=== PATIENT | female | born 1980 | race Caucasian/White ===

== ENCOUNTER 2016-11-17 21:49 | Emergency (ER) | payer SELFPAY ==
[~2016-11-17] VITALS: Ht 172.7 cm; Wt 65.3 kg
[2016-11-17] MEDS ORDERED: ETHI1TAB4 PO (22:16)
[2016-11-17] MEDS ORDERED: SPIR50TA3 PO (22:18)
[2016-11-17 22:56] LABS: *BILIRUBIN,URIN NEGATIVE (NEGATIVE); *BLOOD, URINE 1+ (NEGATIVE); *CLARITY,URINE CLEAR (CLEAR); *COLOR,URINE YELLOW (YELLOW); *KETONES,URINE TRACE (NEGATIVE); *UROBILINOGEN,URINE 0.2 E.U./dl (NORMAL); LEUKOCYTE ESTERASE ,URINE NEGATIVE (NEGATIVE); NITRITE, URINE NEGATIVE (NEGATIVE); PH,URINE 5.5 (5.0-8.0)
[2016-11-17 23:13] LABS: *PROTEIN,URINE 3+ (NEGATIVE); UGLUCOSE 2+ (NEGATIVE)
[2016-11-17 23:18] LABS: BACTERIA,URINE MODERATE /HPF (NONE SEEN); RBC,URINE 0-3 /HPF (0-3); SQUAMOUS EPITHELIAL CELL,UR MANY /HPF (NONE SEEN); YEAST,URINE MODERATE /HPF (NONE SEEN)
[2016-11-17 23:19] LABS: *URINE HCG, QUAL NEGATIVE (NEGATIVE)
[2016-11-17] MEDS: KETOROLAC TROMETHAMINE 15 MG INJ IV ONE (23:19)
[2016-11-17] MEDS: IV NORMAL SALINE 1000 ML BAG IV ONE (23:19)
--- NOTE | 2016-11-17 23:19 | NUR ---
blood sugar 77mg/dl, notified.
[2016-11-17] MEDS ORDERED: KETOROLAC TROMETHAMINE 30 MG INJ ONE (23:22)
[2016-11-17 23:41] LABS: BILIRUBIN,DIRECT 0.1 mg/dL (0.0-0.2); BILIRUBIN,TOTAL 0.2 mg/dL (0.2-1.0); CREATININE 0.7 mg/dL (0.6-1.3); POTASSIUM 3.7 mmol/L (3.5-5.1); TOTAL PROTEIN, SERUM 8.1 g/dL (6.4-8.2)
[2016-11-17 23:47] LABS: BASOPHILS # (AUTO) 0.1 K/uL (0.0-8.0); BASOPHILS % (AUTO) 0.5 % (0.0-2.0); EOSINOPHILS # (AUTO) 0.1 K/uL (0.0-0.7); EOSINOPHILS % (AUTO) 0.7 % (0.0-7.0); HEMATOCRIT 38.9 % (37-47); HEMOGLOBIN 12.9 G/DL (12.0-16.0); LYMPHOCYTES # (AUTO) 2.7 K/UL (0.8-4.8); LYMPHOCYTES % (AUTO) 26.6 % (20.5-51.5); MEAN CORPUSCULAR HEMOGLOBIN 29.1 UUG (27.0-31.0); MEAN CORPUSCULAR HGB CONC 33 g/dL (32.0-37.0); MEAN CORPUSCULAR VOLUME 87.5 FL (81.0-99.0); MONOCYTES # (AUTO) 0.5 K/UL (0.1-1.30); NEUTROPHILS # (AUTO) 6.7 K/UL (1.8-8.9); NEUTROPHILS % (AUTO) 67.2 % (38.5-71.5); PLATELET COUNT (AUTO) 320 K/UL (150-450); RED BLOOD CELL COUNT(AUTO) 4.45 MIL/UL (4.2-5.4); WHITE BLOOD COUNT (AUTO) 10.1 K/UL (4.0-11.2)
[2016-11-17] MEDS: MORPHINE SULFATE 4 MG/1 ML DISP.SYRIN IV ONE (23:50)
[2016-11-17] MEDS: ONDANSETRON 4 MG/2 ML VIAL IV ONE (23:56)
[2016-11-17] MEDS ORDERED: MORPHINE SULFATE 4 MG/1 ML DISP.SYRIN ONE (23:59)
[2016-11-17] MEDS ORDERED: ONDANSETRON 4 MG/2 ML VIAL ONE (23:59)
[2016-11-18] MEDS ORDERED: HYDROMORPHONE 1 MG/1 ML DISP.SYRIN ONE (00:10)
[2016-11-18] MEDS: HYDROMORPHONE 1 MG/1 ML DISP.SYRIN IV ONE (00:18)
[2016-11-18 01:55] LABS: *BILIRUBIN,URIN NEGATIVE (NEGATIVE); *BLOOD, URINE Trace-lysed (NEGATIVE); *CLARITY,URINE CLEAR (CLEAR); *COLOR,URINE YELLOW (YELLOW); *KETONES,URINE 1+ (NEGATIVE); *PROTEIN,URINE NEGATIVE (NEGATIVE); *UROBILINOGEN,URINE 0.2 E.U./dl (NORMAL); LEUKOCYTE ESTERASE ,URINE 1+ (NEGATIVE); NITRITE, URINE NEGATIVE (NEGATIVE); UGLUCOSE NEGATIVE (NEGATIVE)
[2016-11-18 02:03] LABS: BACTERIA,URINE FEW /HPF (NONE SEEN); RBC,URINE 0-3 /HPF (0-3); SQUAMOUS EPITHELIAL CELL,UR MODERATE /HPF (NONE SEEN); WBC,URINE 0-3 /HPF (0-3)
[2016-11-18 02:26] LABS: *URINE HCG, QUAL NEGATIVE (NEGATIVE)
[2016-11-18] MEDS: ONDANSETRON 4 MG/2 ML VIAL IV ONE (02:40)
[2016-11-18] MEDS ORDERED: ONDANSETRON 4 MG/2 ML VIAL ONE (02:49)
--- NOTE | 2016-11-18 03:19 | NUR ---
Patient discharged to home in stable conditon. Written and verbal after care instructions given. Patient verbalizes understanding of instructions. Ambulated from ER with stable gait. All belongings with patient. Peripheral IV removed. Patient will be driven home by in private vehicle.
[2016-11-18 03:21] VITALS: BP 121/74
== END 2016-11-18 03:22 | disposition home or self-care (01) ==
LOC: ER 21:55
DX: R10.9 Unspecified abdominal pain (principal)
CPT/HCPCS: 36415; 76770; 84703; 85025; A4663; J1170; J1885; J2270; J2405; J7030

== ENCOUNTER 2020-07-22 16:46 | Emergency (ER) | payer MEDICAID ==
[~2020-07-22] VITALS: Ht 172.7 cm; Wt 63.5 kg
[~2020-07-22 16:46] MED LIST: ETHI1TAB4 PO; SPIR50TA5 PO
[2020-07-22] MEDS ORDERED: HYDROMORPHONE 1 MG/1 ML DISP.SYRIN ONE (17:10)
[2020-07-22] MEDS ORDERED: ONDANSETRON 4 MG/2 ML VIAL ONE ×2 (17:10→18:28)
[2020-07-22] MEDS: IV NORMAL SALINE 1000 ML BAG IV ONE (17:11)
[2020-07-22] MEDS: ONDANSETRON 4 MG/2 ML VIAL IV ONE ×2 (17:12→18:25)
[2020-07-22] MEDS: HYDROMORPHONE 1 MG/1 ML DISP.SYRIN IV ONE (17:12)
[2020-07-22 17:22] LABS: BASOPHILS # (AUTO) 0.1 K/uL (0.0-8.0); BASOPHILS % (AUTO) 0.6 % (0.0-2.0); EOSINOPHILS % (AUTO) 0.2 % (0.0-7.0); HEMATOCRIT 40.3 % (31.2-41.9); HEMOGLOBIN 12.9 g/dL (10.9-14.3); MEAN CORPUSCULAR HEMOGLOBIN 27.6 uug (24.7-32.8); MEAN CORPUSCULAR HGB CONC 32 g/dL (32.3-35.6); MEAN CORPUSCULAR VOLUME 85.8 fL (75.5-95.3); MONOCYTES # (AUTO) 0.2 K/uL (2.0-10.0); MONOCYTES % (AUTO) 1.4 % (0.0-11.0); NEUTROPHILS # (AUTO) 10.3 K/uL (1.8-8.9); NEUTROPHILS % (AUTO) 88.8 % (38.5-71.5); PLATELET COUNT (AUTO) 383 K/uL (179-408); RED BLOOD CELL COUNT(AUTO) 4.69 MIL/uL (3.63-4.92); WHITE BLOOD COUNT (AUTO) 11.5 K/uL (3.8-11.8)
[2020-07-22 17:31] LABS: CARBON DIOXIDE 25 mmol/L (21-32); CHLORIDE 102 mmol/L (98-107); CREATININE 0.5 mg/dL (0.6-1.3); GLUCOSE 111 mg/dL (74-106); POTASSIUM 3.9 mmol/L (3.5-5.1); UREA NITROGEN, BLOOD 10 mg/dL (7-18)
[2020-07-22 17:37] LABS: ALANINE AMINOTRANSFERASE 26 U/L (14-59); ALKALINE PHOSPHATASE 60 U/L (50-136); ASPARTATE AMINOTRANSFERASE 17 U/L (15-37); BILIRUBIN,DIRECT 0.1 mg/dL (0.0-0.2); BILIRUBIN,TOTAL 0.4 mg/dL (0.2-1.0); LIPASE 84 U/L (73-393); TOTAL PROTEIN, SERUM 7.7 g/dL (6.4-8.2)
[2020-07-22 17:39] LABS: *BILIRUBIN,URIN NEGATIVE (NEGATIVE); *BLOOD, URINE TRACE INTACT (NEGATIVE); *CLARITY,URINE SLIGHTLY CLOUDY (CLEAR); *COLOR,URINE YELLOW (YELLOW); *KETONES,URINE TRACE (NEGATIVE); *UROBILINOGEN,URINE 0.2 E.U./dl (NORMAL); LEUKOCYTE ESTERASE ,URINE 2+ (NEGATIVE); NITRITE, URINE NEGATIVE (NEGATIVE); UGLUCOSE NEGATIVE (NEGATIVE)
[2020-07-22 17:40] LABS: *URINE HCG, QUAL NEGATIVE (NEGATIVE)
[2020-07-22] MEDS ORDERED: HYDR-3980 PO (18:09)
[2020-07-22] MEDS ORDERED: CEPH500T PO (18:09)
[2020-07-22] MEDS ORDERED: CEFTRIAXONE /D5W 50ML IVPB **ER PYXIS IV ONE (18:17)
[2020-07-22] MEDS: CEFTRIAXONE 1 G in IV DEXTROSE 5% 50 ML IV ONE (18:20)
[2020-07-22] MEDS: KETOROLAC TROMETHAMINE 30 MG INJ IVP ONE (18:41)
[2020-07-22] MEDS ORDERED: KETOROLAC TROMETHAMINE 30 MG INJ ONE (18:44)
[2020-07-22 19:09] VITALS: BP 117/81
--- NOTE | 2020-07-22 19:09 | NUR ---
Patient discharged to home in stable condition. Written and verbal after care instructions given. Patient verbalizes understanding of instructions. Stressed follow up or return to ER for worsening s/s. pt walks in steady gait. pt has aride to go home.
== END 2020-07-22 19:12 | disposition home or self-care (01) ==
LOC: ER 16:46
DX: N12 Tubulo-interstitial nephritis, not specified as acute or chronic (principal)
CPT/HCPCS: 36415; 74176; 80048; 80076; 81001; 83690; 84702; 84703; 85025; 87086; 96361; 96365; 96375; 96376; 99284; J0696; J1170; J1885; J2405 ×2; A4663; J7030

== ENCOUNTER 2022-07-13 13:36 | Emergency (ER) | payer MEDICAID, OTHER ==
[~2022-07-13] VITALS: Ht 172.7 cm; Wt 63.5 kg
[~2022-07-13 13:36] MED LIST changes: +CEPH500T PO; +HYDR-3980 PO
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
[2022-07-13] MEDS ORDERED: HYDROCODONE/APAP 5-325MG TABLET PO ONE (15:00)
[2022-07-13] MEDS ORDERED: ACETAMINOPHEN 325 MG TABLET PO ONE (15:00)
--- NOTE | 2022-07-13 15:01 | NUR ---
X-rays completed - awaiting results
[2022-07-13] MEDS ORDERED: HYDROCODONE/APAP 5-325MG TABLET ONE (15:04)
[2022-07-13] MEDS ORDERED: ACETAMINOPHEN 325 MG TABLET ONE (15:05)
[2022-07-13 15:08] LABS: HEMATOCRIT 37.6 % (31.2-41.9); MEAN CORPUSCULAR HEMOGLOBIN 28.2 uug (24.7-32.8); MEAN CORPUSCULAR VOLUME 87.7 fL (75.5-95.3); PLATELET COUNT (AUTO) 299 K/uL (179-408)
--- NOTE | 2022-07-13 15:15 | NUR ---
1) Reviewed by MD. 2) Tylenol and Apollo administered as prescribed and awaiting effect. 3) Rails raised - because of drowsy effect of Apollo.
--- NOTE | 2022-07-13 16:58 | NUR ---
1) Discharge paperwork completed -signed and copies provided. 2) Wanted to see long term care social worker again for report number. 3) Left several messages for long term care social worker Li [phone]/office number [phone]- left another voice mail
--- NOTE | 2022-07-13 17:06 | NUR ---
Patient wants group social worker to call her re: case reference number. Patient happy and left ER clinically stable
[2022-07-13 17:09] VITALS: BP 128/65
--- NOTE | 2022-07-14 08:28 | NUR ---
SW attempted to contact the patient and left her a voicemail with call back information.
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
== END 2022-07-13 17:18 | disposition home or self-care (01) ==
LOC: ER 13:36
DX: S20.222A Contusion of left back wall of thorax, initial encounter (principal); S60.212A Contusion of left wrist, initial encounter; S80.01XA Contusion of right knee, initial encounter; Y04.0XXA Assault by unarmed brawl or fight, initial encounter; Y92.89 Other specified places as the place of occurrence of the external cause; M25.461 Effusion, right knee
CPT/HCPCS: 36415; 71045; 72170; 73110; 85025; A4663

== ENCOUNTER 2022-07-15 15:29 | Emergency (ER) | payer OTHER ==
[~2022-07-15] VITALS: Ht 172.7 cm; Wt 63.5 kg
[2022-07-15] MEDS ORDERED: IV NORMAL SALINE 1000 ML BAG IV ONE (15:45)
[2022-07-15] MEDS ORDERED: DIAZEPAM 10 MG/2 ML DISP.SYRIN IV ONE (15:45)
[2022-07-15] MEDS ORDERED: ACETAMINOPHEN 325 MG TABLET PO ONE (15:45)
[2022-07-15] MEDS ORDERED: ACETAMINOPHEN 325 MG TABLET ONE (15:53)
[2022-07-15] MEDS ORDERED: DIAZEPAM 10 MG/2 ML DISP.SYRIN ONE (15:54)
[2022-07-15] MEDS ORDERED: CYCL5TAB PO (16:15)
[2022-07-15] MEDS ORDERED: IBUP-1955 PO (16:15)
--- NOTE | 2022-07-15 16:21 | NUR ---
Back from CT, NAD noted.
[2022-07-15] MEDS ORDERED: KETOROLAC TROMETHAMINE 15 MG INJ IVP ONE (17:00)
[2022-07-15] MEDS ORDERED: KETOROLAC TROMETHAMINE 15 MG INJ ONE (17:06)
--- NOTE | 2022-07-15 17:20 | NUR ---
Patient discharged to home in stable condition. Written and verbal after care instructions given. Patient verbalizes understanding of instructions. Stressed follow up or return to ER for worsening s/s.
--- NOTE | 2022-07-15 17:20 | NUR ---
IV removed. Catheter intact and site benign. Pressure and 4x4 gauze applied to site. No bleeding noted.
== END 2022-07-15 17:35 | disposition home or self-care (01) ==
LOC: ER 15:29
DX: S06.0XAA Concussion with loss of consciousness status unknown, initial encounter (principal); S83.91XA Sprain of unspecified site of right knee, initial encounter; S16.1XXA Strain of muscle, fascia and tendon at neck level, initial encounter; Y04.0XXA Assault by unarmed brawl or fight, initial encounter; Y92.89 Other specified places as the place of occurrence of the external cause
CPT/HCPCS: 99285; 70450; 96374; 96361; 96375; 72125; J3360; J1885; J7040; A4663

== ENCOUNTER 2022-07-23 14:31 | Emergency (ER) | payer OTHER ==
[~2022-07-23] VITALS: Ht 170.2 cm; Wt 61.2 kg
[~2022-07-23 14:31] MED LIST changes: +CYCL5TAB PO; +IBUP-1955 PO
--- NOTE | 2022-07-23 15:17 | NUR ---
MD at bedside for evaluation
[2022-07-23] MEDS ORDERED: NAPR-1009 PO (15:28)
[2022-07-23 15:34] VITALS: BP 118/80
== END 2022-07-23 15:36 | disposition home or self-care (01) ==
LOC: ER 14:31
DX: M25.561 Pain in right knee (principal); Z79.1 Long term (current) use of non-steroidal anti-inflammatories (NSAID); Z79.899 Other long term (current) drug therapy
CPT/HCPCS: A4663

== ENCOUNTER 2022-11-08 11:08 | Emergency (ER) | payer OTHER ==
[~2022-11-08] VITALS: Ht 170.2 cm; Wt 61.2 kg
[~2022-11-08 11:08] MED LIST changes: +NAPR-1009 PO
[2022-11-08] MEDS ORDERED: MECLIZINE HCL 25 MG TABLET PO ONE (11:30)
[2022-11-08] MEDS ORDERED: IV NORMAL SALINE 1000 ML BAG IV ONE (11:30)
[2022-11-08] MEDS ORDERED: ONDANSETRON 4 MG/2 ML VIAL IV ONE (11:30)
[2022-11-08 11:57] LABS: BASOPHILS # (AUTO) 0.1 K/UL (0.0-0.2); BASOPHILS % (AUTO) 1.1 % (0.0-2.0); EOSINOPHILS # (AUTO) 0.2 K/uL (0.0-0.7); EOSINOPHILS % (AUTO) 3.3 % (0.0-7.0); HEMATOCRIT 37.6 % (31.2-41.9); HEMOGLOBIN 12.3 g/dL (10.9-14.3); LYMPHOCYTES # (AUTO) 1.8 K/uL (0.8-4.8); LYMPHOCYTES % (AUTO) 36.5 % (20.5-51.5); MEAN CORPUSCULAR HEMOGLOBIN 28.4 uug (24.7-32.8); MEAN CORPUSCULAR HGB CONC 33 g/dL (32.3-35.6); MEAN CORPUSCULAR VOLUME 86.7 fL (75.5-95.3); MONOCYTES # (AUTO) 0.3 K/uL (0.1-1.30); MONOCYTES % (AUTO) 5.8 % (0.0-11.0); NEUTROPHILS # (AUTO) 2.6 K/uL (1.8-8.9); NEUTROPHILS % (AUTO) 53.3 % (38.5-71.5); PLATELET COUNT (AUTO) 277 K/uL (179-408); RED BLOOD CELL COUNT(AUTO) 4.33 MIL/uL (3.63-4.92); RED CELL DISTRIBUTION WIDTH 13.4 % (12.3-17.7); WHITE BLOOD COUNT (AUTO) 4.8 K/uL (3.8-11.8)
[2022-11-08 12:00] LABS: DIFFERENTIAL COMMENT 1
[2022-11-08 12:05] LABS: CALCIUM 9.1 mg/dL (8.5-10.1); CREATININE 0.6 mg/dL (0.6-1.3)
[2022-11-08] MEDS ORDERED: ONDANSETRON 4 MG/2 ML VIAL ONE (12:16)
[2022-11-08] MEDS ORDERED: MECLIZINE HCL 25 MG TABLET ONE (12:16)
[2022-11-08] MEDS ORDERED: MECL-159 PO (13:33)
[2022-11-08] MEDS ORDERED: ONDA4TAB5 PO (13:33)
[2022-11-08 14:01] VITALS: BP 122/70; TEMP 98; O2SAT 99
== END 2022-11-08 14:02 | disposition home or self-care (01) ==
LOC: ER 11:08
DX: R42 Dizziness and giddiness (principal); Z79.899 Other long term (current) drug therapy
CPT/HCPCS: 99283; 96374; 96361; 80048; 85025; 36415; J2405; J7040; A4663; J8597